=== PATIENT | female | born 1990 | race Caucasian/White ===

== ENCOUNTER 2021-07-01 10:07 | Inpatient (IN) | payer MEDICAID, SELFPAY ==
[2021-07-01 10:14] VITALS: BP 121/80; PULSE 79; RESP 16; TEMP 36.6; O2SAT 100; BMI 30.7
--- NOTE | 2021-07-01 10:16 | CT_ITS ---
WS: [id number] CT FACIAL BONES HISTORY: R supraorbital trauma/hematoma TECHNIQUE: Images obtained from the supraorbital location through the mandible. Soft tissue and bone windows are reviewed. Coronal and sagittal reformats have also been submitted. DLP: 753.[address] scans at [facility] use at least one of these dose optimization techniques: automated e xposure control; mA and/or kV adjustment per patient size (includes targeted exams where dose is matc hed to clinical indication); or iterative reconstruction. COMPARISON: None available. Moderate-sized soft tissue hematoma lateral to the RIGHT orbit and globe. Hematoma extends anteriorly over the orbit. No retro-orbital hematoma. The globe is intact. No fractures are identified. No air- fluid levels within the sinuses. Nasal bones are normal. CT/CT facial bones wo con* 26028 IMPRESSION: 1. No facial bone fracture. 2. Moderate-sized soft tissue hematoma centered over the anterolateral orbit a nd globe.
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
[2021-07-01 11:05] LABS: HCG, Serum Qual Negative (Negative)
[2021-07-01 11:07] LABS: Amphetamines Screen Urine Negative (Negative); Barbiturates Screen Urine Negative (Negative); Benzodiazepines Screen Urine Negative (Negative); Cocaine Screen Urine Negative (Negative); Opiate Screen Urine Negative (Negative); PCP Screen Urine Negative (Negative); THC Screen Urine Positive (Negative)
[2021-07-01 11:07] LABS: Basophils # 0.1 10^3/uL (0.0-0.1); Basophils % 0.7 %; Eosinophils % 0.2 %; Hematocrit 41.4 % (37.0-47.0); Hemoglobin 13.5 g/dL (11.5-15.3); Lymphocytes # 1.5 10^3/uL (0.8-4.8); Lymphocytes % 18.4 %; Mean Corpuscular HGB Conc 32.6 g/dL (30.0-36.0); Mean Corpuscular Hemoglobin 30.3 pg (28.0-34.0); Mean Corpuscular Volume 92.8 fl (81-99); Mean Platelet Volume 9.4 fL (7.4-10.4); Monocytes # 0.4 10^3/uL (0.2-0.9); Monocytes % 4.7 %; Neutrophils # 6.31 10^3/uL (1.8-7.7); Neutrophils % 75.8 %; Nucleated Red Blood Cells % 0 %; Platelet Count 301 10^3/cmm (130-400); Red Blood Count 4.46 10^6/uL (4.1-5.3); Red Cell Distribution Width 11.8 % (12.1-15.1); White Blood Count 8.3 10^3/uL (4.0-10.0)
[2021-07-01 11:17] LABS: Alanine Aminotransferase 19 U/L (0-33); Albumin Level 4.3 g/dL (3.5-5.2); Alkaline Phosphatase 87 IU/L (35-105); Aspartate Amino Transferase 18 U/L (0-32); Blood Urea Nitrogen 10 mg/dL (6-20); Calcium 9.1 mg/dL (8.5-10.5); Carbon Dioxide 23 mmol/L (22-29); Chloride 103 mmol/L (98-107); Globulin 3.2 g/dL (1.3-4.6); Glucose 89 mg/dL (65-115); Osmolality Calculated 285 mOsm/kg (285-295); Sodium 138 mmol/L (136-145); Total Bilirubin 0.5 mg/dL (0.15-1.2); Total Protein 7.5 g/dL (6.6-8.7)
[2021-07-01 11:23] LABS: Acetaminophen < 5.0 ug/mL (10-30); Alcohol Level < 10 mg/dL (0-10); Salicylate < 0.3 mg/dL (3-10)
[2021-07-01 11:24] LABS: Anion Gap 15.9 (5-19); Potassium 3.9 mmol/L (3.5-5.1)
[2021-07-01] MEDS: acetaminophen 500 mg Tablet 1000 MG PO (13:15)
[2021-07-01 16:29] VITALS: BP 128/73; PULSE 78; RESP 17; TEMP 36.9; O2SAT 98
[2021-07-01] MEDS: acetaminophen 325 mg Tablet 650 MG PO (21:59)
[2021-07-01 22:00] VITALS: BP 105/69; PULSE 70; RESP 17; TEMP 36.7; O2SAT 99
[2021-07-02 06:00] VITALS: BP 105/69; PULSE 70; RESP 17; TEMP 36.7; O2SAT 99
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
[2021-07-02 13:52] VITALS: BP 133/83; PULSE 83; RESP 18; TEMP 36.7; O2SAT 97
[2021-07-02 20:52] VITALS: BP 115/73; PULSE 89; RESP 20; TEMP 36.7; O2SAT 97
[2021-07-02] MEDS: ibuprofen 800 mg tablet PO (23:34)
[2021-07-02] MEDS: trazodone 50 mg Tablet PO (23:35)
[2021-07-02] MEDS: hyDROXYzine 25 mg Capsule 50 MG PO (23:35)
[2021-07-03 06:00] VITALS: BP 99/66; PULSE 62; RESP 18; TEMP 36.8; O2SAT 99
[2021-07-03] MEDS: buPROPion XL (24 HR) 150 mg Tablet PO (08:45)
[2021-07-03 13:21] VITALS: BP 124/78; PULSE 86; RESP 16; TEMP 36.9; O2SAT 99
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
[2021-07-03 15:04] VITALS: BP 124/78; PULSE 86; RESP 16; TEMP 36.9; O2SAT 99
== END 2021-07-03 15:57 | disposition home or self-care (01) | DRG 881 ==
LOC: ER 11:27 → NP 07-02 06:38
PROVIDERS: Admitting Provider Psychiatry & Neurology Psychiatry; Emergency Provider Physician Assistant; PCP Nurse Practitioner Family; Visit Provider Psychiatry & Neurology Psychiatry
DX: F32.9 Major depressive disorder, single episode, unspecified (principal); R45.851 Suicidal ideations; Z81.8 Family history of other mental and behavioral disorders; Z81.1 Family history of alcohol abuse and dependence; Z63.0 Problems in relationship with spouse or partner
CPT/HCPCS: 70486; 80053; 80306; 80307; 84703; 85025; 97165; 99285